=== PATIENT | female | born 1965 | race Caucasian/White ===

== ENCOUNTER 2018-03-16 19:16 | Emergency (ER) | payer OTHER ==
[2018-03-16 19:26] VITALS: RESP 18; O2SAT 98
[2018-03-16 19:59] VITALS: BP 146/87; PULSE 64; TEMP 99.1
--- NOTE | 2018-03-16 19:59 | C.PDOC ---
History Of Present Illness 52 year old female presents to the emergency department with complaints of a non -healing wound to the left breast for over a month. Patient reports that her pain is status-post a breast reduction surgery which she got done two months ago. One month ago, patient reports that she fell and injured/opened her incision. Patient reports that one spot in the incision has not healed. She denies fever, pain, and drainage from the wound. Time Seen by Provider: 03/16/18 19:37 Chief Complaint (Nursing): Breast Problem History Per: Patient History/Exam Limitations: no limitations Onset/Duration Of Symptoms: Other (month) Current Symptoms Are (Timing): Still Present Past Medical History Reviewed: Historical Data, Nursing Documentation, Vital Signs Vital Signs: Last Vital Signs Temp 99.1 F 03/16/18 19:58 Pulse 64 03/16/18 19:58 Resp 18 03/16/18 19:58 BP 146/87 03/16/18 19:58 Pulse Ox 98 03/16/18 21:20 - Medical History PMH: HTN Surgical History: No Surg Hx Family History: States: No Known Family Hx - Social History Hx Alcohol Use: Yes Hx Substance Use: No - Immunization History Hx Tetanus Toxoid Vaccination: No Hx Influenza Vaccination: No Hx Pneumococcal Vaccination: No Review Of Systems Except As Marked, All Systems Reviewed And Found Negative. Skin: Positive for: Other (non-healing wound on left breast) Physical Exam - Physical Exam Appears: Non-toxic, No Acute Distress Skin: Warm, Dry Head: Atraumatic, Normacephalic Eye(s): bilateral: Normal Inspection Nose: Normal Neck: Normal, Supple Chest: Other (incisional scar to the mid, lower left breast area extending to the lower border of the breast. Small open wound present in the middle with exudates in the opening of the wound. No drainage, fluctuance, or induration to the lower border of the left breast. Minimal erythema, no palpable mass. ) Respiratory: Normal Breath Sounds, No Rales, No Rhonchi, No Wheezing Gastrointestinal/Abdominal: Normal Exam, Soft, No Tenderness Neurological/Psych: Oriented x3, Normal Speech, Normal Cognition ED Course And Treatment O2 Sat by Pulse Oximetry: 98 (RA) Pulse Ox Interpretation: Normal Progress Note: Plan: Wound cultured and sent to lab, and patient discharged on Bactrim DS. Patient will be traveling to [facility] on saturday to see plastic surgeonand get wound check, and was advised to take her medications. Disposition - Disposition Referrals: Non [facility] Provider, [Primary Care Provider] - Disposition: HOME/ ROUTINE Disposition Time: 19:59 Condition: STABLE Additional Instructions: Take medication as directed Apply warm compress to area Keep follow up with your surgeon as scheduled Return to ER if worse Prescriptions: Sulfamethoxazole/Trimethoprim [Bactrim DS 800 mg-160 mg] 1 tab PO BID #14 tab Instructions: Wound Care (DC) Forms: [employer] (Icelandic), Gen Discharge Inst Maori - Clinical Impression Clinical Impression: Incisional breast wound - PA / DIRECTOR OF THERAPY SERVICES / Resident Statement MD/DO has reviewed & agrees with the documentation as recorded. - Scribe Statement The provider has reviewed the documentation as recorded by the Scribe (Michael Somers) All medical record entries made by the Scribe were at my direction and personally dictated by me. I have reviewed the chart and agree that the record accurately reflects my personal performance of the history, physical exam, medical decision making, and the department course for this patient. I have also personally directed, reviewed, and agree with the discharge instructions and disposition.
== END 2018-03-16 20:09 | disposition home or self-care (01) ==
LOC: SUPCPDRO 19:16 → C.ER 19:16
DX: T81.89XA Other complications of procedures, not elsewhere classified, initial encounter (principal); Y83.9 Surgical procedure, unspecified as the cause of abnormal reaction of the patient, or of later complication, without mention of misadventure at the time of the procedure